=== PATIENT | female | born 2000 | race African-American/Black ===

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

== ENCOUNTER 2024-03-07 10:48 | Emergency (ER) | payer MEDICAID ==
[~2024-03-07] VITALS: Ht 172.7 cm; Wt 65.0 kg
[~2024-03-07 10:48] MED LIST changes: -PREN-142 MT; +PRENATAL ONE T1 EACH MT
[2024-03-07 10:50] VITALS: O2SAT 100
[2024-03-07] MEDS ORDERED: ACET-2708 PO (12:39)
[2024-03-07] MEDS ORDERED: HYDR26CR2 TP (12:39)
[2024-03-07] MEDS: LORAZEPAM 1MG TABLET PO STA (12:55)
[2024-03-07 13:16] VITALS: BP 118/72; PULSE 98; RESP 18; TEMP 37.05852; O2SAT 100
== END 2024-03-07 13:40 | disposition home or self-care (01) ==
LOC: ER 10:48
DX: H10.213 Acute toxic conjunctivitis, bilateral (principal); F41.9 Anxiety disorder, unspecified
CPT/HCPCS: 81025; 99283

== ENCOUNTER 2024-08-31 21:56 | Emergency (ER) | payer OTHER ==
[~2024-08-31] VITALS: Ht 162.6 cm; Wt 54.0 kg
[~2024-08-31 21:56] MED LIST changes: +ACET-2708 PO; +HYDR26CR2 TP
[2024-08-31 22:07] VITALS: O2SAT 99
[2024-08-31] MEDS: SODIUM CHLORIDE 0.9% 1,000 ML IV ONE (23:20)
[2024-08-31] MEDS: MORPHINE SULFATE 4 MG/ML INJ (FOR IV/IM USE) IV STA (23:20)
[2024-08-31] MEDS: ONDANSETRON HCL 4MG/2ML INJ IV STA (23:20)
[2024-08-31] MEDS: CEFTRIAXONE 1GM/50ML 50 ML IV ONE (23:21)
[2024-08-31 23:40] LABS: BASOPHILS % 0.1 % (0.0-2.0); EOSINOPHILS % 0.1 % (0.0-5.0); HEMATOCRIT. 25.4 % (36.0-48.0); HEMOGLOBIN. 8.4 g/dL (12.0-16.0); LYMPHOCYTES % 10.3 % (20.0-50.0); MEAN CORPUSCULAR HEMOGLOBIN 28.8 pg (28.0-32.0); MEAN CORPUSCULAR VOLUME 87.1 fL (81.0-99.0); MEAN PLATELET VOLUME 7.9 fl (7.4-10.4); MONOCYTES % 5.5 % (2.0-8.0); PLATELET 280 x1000/uL (130-400); RED BLOOD CELL COUNT 2.92 mill/uL (4.2-5.4); RED CELL DISTRIBUTION WIDTH 12.8 % (11.6-14.6)
[2024-08-31 23:50] LABS: CARBON DIOXIDE 27 mEq/L (21-32); CHLORIDE 105 mEq/L (98-107); POTASSIUM 3.9 mEq/L (3.5-5.1); SODIUM 139 mEq/L (136-145)
[2024-08-31 23:51] LABS: CALCIUM 9.1 mg/dL (8.7-10.4)
[2024-08-31 23:55] LABS: CREATININE 0.6 mg/dL (0.6-1.0); INR 0.9; PROTHROMBIN TIME 9.8 sec (9.6-11.0)
[2024-08-31 23:56] LABS: GLUCOSE 85 mg/dL (70-105)
[2024-08-31 23:57] LABS: ALANINE AMINOTRANSFERASE 9 IU/L (10-49); ALBUMIN 3.6 g/dL (3.2-4.8); ASPARTATE AMINOTRANSFERASE 13 IU/L (<34)
[2024-08-31 23:58] LABS: BILIRUBIN DIRECT 0.1 mg/dL (<=3.0); BILIRUBIN TOTAL 0.4 mg/dL (0.1-1.0); PROTEIN TOTAL 6.7 g/dL (6.0-8.3)
[2024-09-01 00:16] LABS: CLARITY URINE CLOUDY (CLEAR); COLOR URINE YELLOW (YELLOW); GLUCOSE URINE NEGATIVE (NEGATIVE); KETONES URINE NEGATIVE (NEGATIVE); LEUKOCYTE ESTERASE URINE 3+ (NEGATIVE); NITRITE URINE POSITIVE (NEGATIVE); OCCULT BLOOD URINE NEGATIVE (NEGATIVE); PH URINE 7.5 (4.5-8.0); PROTEIN URINE NEGATIVE (NEGATIVE); SPECIFIC GRAVITY URINE 1.005 (1.005-1.030); UROBILINOGEN URINE 0.2 E.U./dL (0.2-1.0)
[2024-09-01] MEDS ORDERED: MIDAZOLAM HCL 2 MG/2 ML VIAL IV NR (00:45)
[2024-09-01 00:47] LABS: *AMPHETAMINES SCREEN URINE NEGATIVE (NEGATIVE); *BARBITURATES SCREEN URINE NEGATIVE (NEGATIVE)
[2024-09-01 00:48] LABS: *BENZODIAZEPINES SCREEN URINE NEGATIVE (NEGATIVE); *COCAINE SCREEN URINE NEGATIVE (NEGATIVE); CANNABINOID URINE SCREEN PRESUMPTIVE POSITIVE (NEGATIVE); ECSTASY MDMA SCREEN URINE NEGATIVE (NEGATIVE); METHADONE URINE SCREEN NEGATIVE (NEGATIVE); OPIATES URINE SCREEN NEGATIVE (NEGATIVE); PHENCYCLIDINE URINE SCREEN NEGATIVE (NEGATIVE)
[2024-09-01 01:17] LABS: ETHANOL BLOOD < 10 mg/dL (<10); UREA NITROGEN BLOOD < 5 mg/dL (9-23)
[2024-09-01] MEDS: SODIUM CHLORIDE 0.9% 1,000 ML IV ONE (01:19)
[2024-09-01] MEDS: MORPHINE SULFATE 2 MG/ML INJ (NOT FOR IM USE) IV ONE (02:19)
[2024-09-01 02:43] VITALS: BP 115/79; PULSE 86; RESP 14; TEMP 37.1; O2SAT 100
[2024-09-01 02:59] LABS: SQUAMOUS EPITHELIAL CELL URINE FEW /lpf (RARE/1+)
[2024-09-01 03:00] LABS: RBC URINE 0-2 /hpf (0-2)
[2024-09-01 03:01] LABS: BACTERIA URINE 4+
== END 2024-09-01 03:27 | disposition admitted as inpatient to this hospital (09) ==
LOC: ER 21:56
DX: O41.03X0 Oligohydramnios, third trimester, not applicable or unspecified (principal); Z87.440 Personal history of urinary (tract) infections; Z3A.33 33 weeks gestation of pregnancy; Z59.00 Homelessness unspecified; Z79.899 Other long term (current) drug therapy
CPT/HCPCS: 80076; 80305; 80048; 81003; 80320; 83605; 83690; 85025; 85610; 36415; 96365; 96375 ×2; 99291; 76805; 96361; J0696; J2405; J2270 ×2; J7030 ×2; Z7610; G0480

== ENCOUNTER 2024-10-27 03:08 | Emergency (ER) | payer OTHER ==
[~2024-10-27] VITALS: Ht 154.9 cm; Wt 50.0 kg
[2024-10-27 03:09] VITALS: O2SAT 99
[2024-10-27] MEDS ORDERED: DICYCLOMINE 10 MG/5 ML ORAL SYR PO STA (03:33)
[2024-10-27] MEDS: MAGNESIUM/ALUMINUM HYDROXIDE/SIMETHICONE 30ML UDC PO STA (03:57)
[2024-10-27] MEDS: DICYCLOMINE HCL 10MG CAPSULE PO NR (03:57)
[2024-10-27 04:00] VITALS: BP 127/86; PULSE 75; RESP 14; TEMP 36.7; O2SAT 100
[2024-10-27 04:03] LABS: BASOPHILS % 0.6 % (0.0-2.0); EOSINOPHILS % 1.7 % (0.0-5.0); HEMATOCRIT. 36.5 % (36.0-48.0); HEMOGLOBIN. 12.1 g/dL (12.0-16.0); LYMPHOCYTES % 40.6 % (20.0-50.0); MEAN CORPUSCULAR HEMOGLOBIN 26.6 pg (28.0-32.0); MEAN CORPUSCULAR VOLUME 80.4 fL (81.0-99.0); MEAN PLATELET VOLUME 8.1 fl (7.4-10.4); MONOCYTES % 5.2 % (2.0-8.0); NEUTROPHILS % 51.9 % (40.0-76.0); PLATELET 287 x1000/uL (130-400); RED BLOOD CELL COUNT 4.54 mill/uL (4.2-5.4); WHITE BLOOD COUNT 6.6 x1000/uL (4.5-11.0)
[2024-10-27 04:12] LABS: CARBON DIOXIDE 24 mEq/L (21-32); CHLORIDE 109 mEq/L (98-107); POTASSIUM 3.9 mEq/L (3.5-5.1); SODIUM 143 mEq/L (136-145)
[2024-10-27 04:13] LABS: CALCIUM 9.3 mg/dL (8.7-10.4)
[2024-10-27 04:16] LABS: HCG SCREEN NEGATIVE
[2024-10-27 04:17] LABS: CREATININE 0.9 mg/dL (0.6-1.0); GLUCOSE 92 mg/dL (70-105)
[2024-10-27 04:18] LABS: UREA NITROGEN BLOOD 21 mg/dL (9-23)
[2024-10-27 04:19] LABS: ALANINE AMINOTRANSFERASE < 7 IU/L (10-49); ALBUMIN 4.4 g/dL (3.2-4.8); ASPARTATE AMINOTRANSFERASE 11 IU/L (<34)
[2024-10-27 04:20] LABS: PROTEIN TOTAL 7.1 g/dL (6.0-8.3)
[2024-10-27 04:55] LABS: CLARITY URINE TURBID (CLEAR); COLOR URINE YELLOW (YELLOW); GLUCOSE URINE NEGATIVE (NEGATIVE); KETONES URINE TRACE (NEGATIVE); LEUKOCYTE ESTERASE URINE 3+ (NEGATIVE); NITRITE URINE NEGATIVE (NEGATIVE); OCCULT BLOOD URINE 3+ (NEGATIVE); PROTEIN URINE 2+ (NEGATIVE); SPECIFIC GRAVITY URINE 1.029 (1.005-1.030)
[2024-10-27] MEDS ORDERED: CEPH250C2 MT (05:14)
[2024-10-27 05:15] LABS: BACTERIA URINE 3+; RBC URINE TNTC /hpf (0-2); SQUAMOUS EPITHELIAL CELL URINE 3+ /lpf (RARE/1+); URIC ACID CRYSTALS URINE 1+ /lpf; WBC URINE 50-100 /hpf (0-2)
== END 2024-10-27 05:40 | disposition home or self-care (01) ==
LOC: ER 03:08
DX: N39.0 Urinary tract infection, site not specified (principal); Z79.899 Other long term (current) drug therapy
CPT/HCPCS: 36415; 76705; 80053; 81003; 81025; 84703; 85025; 99284